=== PATIENT | female | born 1940 | race Caucasian/White ===

== ENCOUNTER → 2017-04-17 | Outpatient (CLI) | payer MEDICARE, OTHER ==
[~2017-04-17] MED LIST: ALBU90OI6 PO; ALEVE220 MG PO; AMLO5 PO; ASPI81CH; Aspir 8181 MG PO; CEFP200 PO; CENTRUM SILVER1 EAC2 PO; CHOL10002 PO; COQ1050 MG PO; LOSA50 PO; LOVA40 PO; MULVITMIND PO; NAPR220 PO; NEBI10 PO
[2017-04-19 16:09] LABS: HPV Genotype 16 Not Detected (NOTDET); HPV Genotype 18 Not Detected (NOTDET)
[2017-04-24 13:26] LABS: HPV High Risk Other Not Detected (NOTDET)
== END ==
LOC: LAB 15:43
PROVIDERS: Obstetrics & Gynecology
DX: C55 Malignant neoplasm of uterus, part unspecified (principal)
CPT/HCPCS: 87624; 88142

== ENCOUNTER 2017-12-05 17:44 | Emergency (ER) | payer MEDICARE, OTHER ==
[~2017-12-05] VITALS: Ht 149.9 cm; Wt 71.2 kg
[~2017-12-05 17:44] MED LIST changes: -CEFP200 PO
[2017-12-05] MEDS ORDERED: CEFP200 PO (18:27)
== END 2017-12-05 19:17 | disposition home or self-care (01) ==
LOC: ER 17:44
DX: J18.9 Pneumonia, unspecified organism (principal); E78.5 Hyperlipidemia, unspecified; I10 Essential (primary) hypertension; J45.909 Unspecified asthma, uncomplicated; Z79.899 Other long term (current) drug therapy; Z79.82 Long term (current) use of aspirin
CPT/HCPCS: 99284-25

== ENCOUNTER → 2018-04-04 | Outpatient (CLI) | payer MEDICARE, OTHER ==
[~2018-04-04] MED LIST changes: +CEFP200 PO
== END | disposition home or self-care (01) ==
LOC: PLD 14:17 → LAB SHORT 14:17
DX: D48.5 Neoplasm of uncertain behavior of skin (principal)
CPT/HCPCS: 88305

== ENCOUNTER → 2018-06-05 | Outpatient (CLI) | payer MEDICARE, OTHER ==
[2018-06-07 15:07] LABS: HPV 16 Negative (Negative); HPV 18 Negative (Negative); HPV OTHER HR TYPES Negative (Negative)
== END | disposition home or self-care (01) ==
LOC: LAB 11:47 → LAB SHORT 11:47
PROVIDERS: Obstetrics & Gynecology
DX: Z01.419 Encounter for gynecological examination (general) (routine) without abnormal findings (principal)
CPT/HCPCS: 87624; G0123

== ENCOUNTER 2019-07-16 15:39 | Emergency (ER) | payer MEDICARE, OTHER ==
[~2019-07-16] VITALS: Ht 144.8 cm; Wt 70.3 kg
[2019-07-16] MEDS ORDERED: VITAMIN D31000 UNI1 PO (18:53)
[2019-07-16] MEDS ORDERED: POTA10T (18:53)
[2019-07-16] MEDS ORDERED: CENTRUM SILVER1 EAC2 PO (18:54)
[2019-07-16] MEDS ORDERED: MONTELUKAST SOD10 M1 PO (18:54)
[2019-07-16] MEDS ORDERED: MICROZIDE12.5 M1 PO (18:54)
[2019-07-16] MEDS ORDERED: FLUT1DIS5 INH (18:54)
[2019-07-16] MEDS ORDERED: AMLO5 PO (18:55)
[2019-07-16] MEDS ORDERED: ROSU10TA PO (18:55)
== END 2019-07-16 19:35 | disposition home or self-care (01) ==
LOC: ER 15:39
DX: R04.2 Hemoptysis (principal); I48.91 Unspecified atrial fibrillation; Z91.041 Radiographic dye allergy status; Z79.899 Other long term (current) drug therapy
CPT/HCPCS: 71046; 99283-25

== ENCOUNTER 2020-03-02 09:21 | Day surgery (SDC) | payer MEDICARE, OTHER ==
[~2020-03-02] VITALS: Ht 144.8 cm; Wt 68.2 kg
[~2020-03-02 09:21] MED LIST changes: +AZELASTINE INH; +FLUT1DIS5 INH; +FLUTICASONE-SA1 EAC1 INH; +FURO20 PO; +HYDCHL25 PO; +MICROZIDE12.5 M1 PO; +MONT10T; +MONTELUKAST SOD10 M1 PO; +OMEP20ER PO; +POTA10T; +POTCHL20ER PO; +PROAIR RESPICL90 MCG INH; +ROSU10TA PO; +VITAMIN D31000 UNI1 PO; +Vitamin D2000 UNIT PO; +XARELTO20 MG PO
--- NOTE | 2020-03-02 10:27 | NUR ---
03/02/20 1027 Brandy Knight 2 IV ATTEMPTS BY EMI, IST IN L HAND WAS UNSUCCESSFUL, 2ND IN L WRIST WAS SUCCESSFUL
== END 2020-03-02 12:08 | disposition home or self-care (01) ==
LOC: ORSCSDS 09:21
PROVIDERS: Ophthalmology
PROC: 08SQ0ZZ Reposition Right Lower Eyelid, Open Approach (ICD-10-PCS; principal; 2020-03-02 10:30)
DX: H02.1 Ectropion of eyelid (principal); I10 Essential (primary) hypertension; J45.909 Unspecified asthma, uncomplicated; G47.33 Obstructive sleep apnea (adult) (pediatric)
CPT/HCPCS: J0171; J2250; J2704; J3010; J7040

== ENCOUNTER 2020-07-07 13:50 | Day surgery (SDC) | payer MEDICARE, OTHER ==
[~2020-07-07] VITALS: Ht 144.8 cm; Wt 69.9 kg
== END 2020-07-07 16:28 | disposition home or self-care (01) ==
LOC: ORSCSDS 13:50
PROC: 0DBK8ZX Excision of Ascending Colon, Via Natural or Artificial Opening Endoscopic, Diagnostic (ICD-10-PCS; principal; 2020-07-07)
PROC: 0DBP8ZX Excision of Rectum, Via Natural or Artificial Opening Endoscopic, Diagnostic (ICD-10-PCS; principal; 2020-07-07)
PROC: 0DBM8ZX Excision of Descending Colon, Via Natural or Artificial Opening Endoscopic, Diagnostic (ICD-10-PCS; principal; 2020-07-07)
PROC: 0DBH8ZX Excision of Cecum, Via Natural or Artificial Opening Endoscopic, Diagnostic (ICD-10-PCS; principal; 2020-07-07)
DX: Z12.11 Encounter for screening for malignant neoplasm of colon (principal); Z86.010 Personal history of colon polyps; D12.0 Benign neoplasm of cecum; D12.2 Benign neoplasm of ascending colon; D12.4 Benign neoplasm of descending colon; K62.1 Rectal polyp; J44.9 Chronic obstructive pulmonary disease, unspecified; K57.30 Diverticulosis of large intestine without perforation or abscess without bleeding; G47.33 Obstructive sleep apnea (adult) (pediatric); I10 Essential (primary) hypertension; I48.0 Paroxysmal atrial fibrillation; E66.9 Obesity, unspecified; Z68.33 Body mass index [BMI] 33.0-33.9, adult; Z79.82 Long term (current) use of aspirin; Z79.01 Long term (current) use of anticoagulants; Z79.899 Other long term (current) drug therapy
CPT/HCPCS: 88305; J2704

== ENCOUNTER 2022-03-01 07:16 | Day surgery (SDC) | payer MEDICARE, OTHER ==
[~2022-03-01] VITALS: Ht 139.7 cm; Wt 66.4 kg
[~2022-03-01 07:16] MED LIST changes: +AZELASTINE205.5 MCG1; +Aspirin EC81 MG PO; +DYAZIDE 37.5-21 EACH PO; +ERYT1OIN RIGHTEYE; +FLUT1DIS8 INH; +HYDCHL12.5 PO; +MONT10T PO; +XARELTO20 MG
--- NOTE | 2022-03-01 08:07 | NUR ---
03/01/22 0807 ISAAC DURHAM IN AT 0751 [place] AT 0759
== END 2022-03-01 09:38 | disposition home or self-care (01) ==
LOC: ORSCSDS 07:16
PROVIDERS: Ophthalmology
PROC: 08RJ3JZ Replacement of Right Lens with Synthetic Substitute, Percutaneous Approach (ICD-10-PCS; principal; 2022-03-01 09:00)
DX: H25.12 Age-related nuclear cataract, left eye (principal); H21.81 Floppy iris syndrome; I10 Essential (primary) hypertension; Z87.891 Personal history of nicotine dependence; G47.33 Obstructive sleep apnea (adult) (pediatric); I50.9 Heart failure, unspecified; J44.9 Chronic obstructive pulmonary disease, unspecified; Z79.899 Other long term (current) drug therapy; E66.9 Obesity, unspecified; Z68.34 Body mass index [BMI] 34.0-34.9, adult
CPT/HCPCS: J2001; J2250; J3010; J3300; J3301; J7040; V2632